=== PATIENT | female | born 1975 | race Caucasian/White ===

== ENCOUNTER → 2022-12-15 10:03 | Outpatient (BNVA) | payer MEDICAID, SELFPAY | PROVIDERS: Visit Provider Internal Medicine Rheumatology | DX: Z79.899 Other long term (current) drug therapy (principal); Z11.59 Encounter for screening for other viral diseases; Z11.1 Encounter for screening for respiratory tuberculosis; M06.041 Rheumatoid arthritis without rheumatoid factor, right hand; M06.042 Rheumatoid arthritis without rheumatoid factor, left hand; M79.7 Fibromyalgia; Z71.85 Encounter for immunization safety counseling | CPT/HCPCS: 36415; 80076; 82306; 82565; 83520; 84439; 84443; 85025; 86200; 86431; 86480; 86704; 86803; 87340; 99204 ==

== ENCOUNTER → 2023-03-16 12:42 | Outpatient (BNVA) | payer BC, SELFPAY | PROVIDERS: PCP Nurse Practitioner; Visit Provider Internal Medicine Rheumatology | DX: Z79.899 Other long term (current) drug therapy (principal); M06.041 Rheumatoid arthritis without rheumatoid factor, right hand; M06.042 Rheumatoid arthritis without rheumatoid factor, left hand; M79.7 Fibromyalgia; Z71.85 Encounter for immunization safety counseling | CPT/HCPCS: 36415; 80076; 82565; 85025; 86140 ==

== ENCOUNTER 2023-03-17 09:02 | Day surgery (SDC) | payer BC, SELFPAY ==
[2023-03-17 09:14] VITALS: BP 134/76; PULSE 79; RESP 18; TEMP 36.4; O2SAT 97; BMI 31.3
--- NOTE | 2023-03-17 09:24 | W.PM.OPSFHP ---
Same Day Surgery H&P Indication for Procedure/HPI DATE OF PROCEDURE: March 17, 2023 CHIEF COMPLAINT/INDICATIONFOR SURGICAL PROCEDURE: GERD and need for screening colonoscopy PREOP DIAGNOSIS: need for screening colonoscopy PLANNED PROCEDURE: Operation Date: 03/17/23 09:55 Proposed Procedures p [id number] egd [id number] colon G0121 screen oclon A risk K21.9 ,Z12.11 ,(Not Applicable) - Steven Resendiz MD s Colonoscopy(Not Applicable) - Steven Resendiz MD Medications/Allergies* Home Medications Medication Instructions Recorded Confirmed Type esomeprazole magnesium 20 mg 20 mg PO DAILY 12/15/22 03/17/23 History capsule,delayed release (Nexium) fluticasone propionate [Flovent inhalation BID 12/15/22 03/16/23 History HFA] multivitamin 1 tab PO DAILY 01/10/23 03/17/23 History Allergies/Adverse Reactions Allergy/AdvReac Type Severity Reaction Status Date / Time Latex, Natural Rubber Allergy rash Verified 03/16/23 11:45 Pertinent History/Comorbid Conditions* Medical History (Updated 01/31/23 @ 08:53 by Steven Resendiz MD) Immunization counseling Fibromyalgia High risk medication use Seronegative rheumatoid arthritis of both hands Rheumatoid arthritis GERD (gastroesophageal reflux disease) Asthma IBS (irritable bowel syndrome) Major depressive disorder Abdominal hernia Deviated nasal septum Surgical History (Updated 12/15/22 @ 11:09 by Ehsan Holly MD) History of appendectomy Family History (Updated 01/10/23 @ 08:36 by Floresita Lebron LPN) Rheumatoid arthritis Diabetes Mother pre diabetes Grandmother Cancer Mother skin Grandmother breast Stroke Grandfather paternal Denies family history of Lupus CAD (coronary artery disease) Chronic kidney disease (CKD) Family history of premature coronary artery disease Lung disease Hypertension Thyroid disease Social History Smoking and tobacco/nicotine status: never used tobacco/nicotine Alcohol intake: never Pertinent Exam Findings alert, oriented x 3, clear to auscultation bilaterally and regular rate & rhythm Recommendations Surgery/Procedure today Coding Level of Care Code Acute Code for Chg Fwd
[2023-03-17] MEDS: sodium chloride 0.9% 1,000 ML 30 ML IV (09:25)
--- NOTE | 2023-03-17 09:46 | ANES.PREANE2 ---
Pre-Anesthetic Assessment Height/Weight: Height 1.7 m Weight 90.718 kg Temp Pulse Resp BP Pulse Ox O2 Del Method 97.5 F L 79 18 134/76 97 Room Air 03/17/23 09:14 03/17/23 09:14 03/17/23 09:14 03/17/23 09:14 03/17/23 09:14 03/17/23 09:14 Preop Diagnosis: need for screening colonoscopy Operation Date: 03/17/23 09:55 Proposed Procedures p [id number] egd [id number] colon G0121 screen oclon A risk K21.9 ,Z12.11 ,(Not Applicable) - Steven Resendiz MD s Colonoscopy(Not Applicable) - Steven Resendiz MD Familial anesthetic complications: PONV Was Beta Janene taken within 24 hours: N/A Was Clonidine taken within 24 hours: N/A Last intake: Intake Last Liquid Date 03/16/23 Last Liquid Time 23:00 Last Solid Date 03/15/23 Last Solid Time 22:00 Social No alcohol and No tobacco Exam alert, oriented x 3, clear to auscultation bilaterally and regular rate & rhythm Airway Mallampati: Class II Dentition: full Pulmonary Asthma GI Gastroesophageal Reflux Disease [facility] [place] Fibromyalgia and Rheumatoid Arthritis Anesthetic Plan ASA status: 2 Anesthesia: MAC Risk of > 500 ml blood loss (7ml/kg in children): No Medications/Allergies Home Medications Medication Instructions Recorded Confirmed Last Taken Type esomeprazole magnesium 20 mg 20 mg PO DAILY 12/15/22 03/17/23 03/15/23 History capsule,delayed release (Nexium) fluticasone propionate [Flovent inhalation BID 12/15/22 03/16/23 03/16/23 History HFA] prednisone 10 mg tablet See Rx Instructions PO .COMPLEX 12/15/22 03/17/23 3 Months Ago Rx PRN joint pain #30 tabs ~12/16/22 citalopram 40 mg tablet (Celexa) 40 mg PO DAILY #90 tabs 01/10/23 03/17/23 03/16/23 Rx montelukast 10 mg tablet 10 mg PO DAILY #90 tabs 01/10/23 03/17/23 03/16/23 Rx (Singulair) multivitamin 1 tab PO DAILY 01/10/23 03/17/23 03/14/23 History folic acid 1 mg tablet 1 mg PO DAILY #90 tabs 03/16/23 03/17/23 03/08/23 Rx methotrexate sodium 2.5 mg tablet See Rx Instructions PO .week 03/16/23 03/17/23 03/12/23 Rx Rheumatoid Arthritis #50 tabs Allergies Allergy/AdvReac Type Severity Reaction Status Date / Time Latex, Natural Rubber Allergy rash Verified 03/16/23 11:45 Current Medications Generic Name Dose Route Start Last Admin Trade Name Ladan PRN Reason Stop Dose Admin Sodium Chloride 1,000 mls @ 30 mls/hr 03/17/23 09:15 03/17/23 09:25 Sodium Chloride 0.9% IV 30 mls/hr .Q24H GILMA Administration PFSH Anesthesia Medical History Immunization counseling Fibromyalgia High risk medication use Seronegative rheumatoid arthritis of both hands Rheumatoid arthritis GERD (gastroesophageal reflux disease) Asthma IBS (irritable bowel syndrome) Major depressive disorder Abdominal hernia Deviated nasal septum Surgical History History of appendectomy Family History Mother Cancer skin Diabetes pre diabetes Grandmother Cancer breast Diabetes Grandfather Stroke paternal Other Rheumatoid arthritis Denies family history of Lupus CAD (coronary artery disease) Chronic kidney disease (CKD) Family history of premature coronary artery disease Lung disease Hypertension Thyroid disease Social History Smoking and tobacco/nicotine status: never used tobacco/nicotine Alcohol intake: never Female Reproductive History Date of last menstrual period: 03/06/23 Para: 3 Spontaneous abortions: No Data Anesthesia Cardiac Studies: No Data to Display
[2023-03-17 09:49] LABS: OR HCG Qualitative Urine Negative (Negative)
[2023-03-17 10:40] VITALS: BP 116/71; PULSE 100; RESP 16; TEMP 36.1; O2SAT 97
[2023-03-17 11:07] VITALS: BP 119/73; PULSE 80; RESP 16; O2SAT 99
--- NOTE | 2023-03-17 14:47 | ANE.PACU2 ---
Inpatient post-anesthesia follow up: Airway intact: Yes Vital signs: Temperature 97.0 F Pulse Rate 80 Respiratory Rate 16 Blood Pressure 119/73 Pulse Oximetry 99 Oxygen Delivery Me thod Room Air Oxygen Flow Rate Fraction of Inspir ed Oxygen Hydration adequate: Yes Nausea and vomiting: No Pain level: 1 Mental status: Baseline
== END 2023-03-17 12:18 | disposition home or self-care (01) ==
PROVIDERS: PCP Nurse Practitioner; Visit Provider Surgery
PROC: 0DJ08ZZ Inspection of Upper Intestinal Tract, Via Natural or Artificial Opening Endoscopic (ICD-10-PCS; CPT 43235; principal; 2023-03-17 09:55)
PROC: 0DJD8ZZ Inspection of Lower Intestinal Tract, Via Natural or Artificial Opening Endoscopic (ICD-10-PCS; CPT 45378; 2023-03-17 09:55)
DX: Z12.11 Encounter for screening for malignant neoplasm of colon (principal); K21.9 Gastro-esophageal reflux disease without esophagitis; M79.7 Fibromyalgia; K44.9 Diaphragmatic hernia without obstruction or gangrene; K29.70 Gastritis, unspecified, without bleeding; M06.9 Rheumatoid arthritis, unspecified
CPT/HCPCS: 43239; 45378; 76937; 81025; 84703; 88305; J2704; J3490; J7030

== ENCOUNTER → 2023-04-10 12:05 | Outpatient (BNVA) | payer BC, SELFPAY | PROVIDERS: PCP Nurse Practitioner; Visit Provider Nurse Practitioner Family | DX: N39.0 Urinary tract infection, site not specified (principal) | CPT/HCPCS: 81000; 87077; 87086; 87184 ==

== ENCOUNTER → 2023-06-20 11:44 | Outpatient (BNVA) | payer BC, SELFPAY | PROVIDERS: PCP Nurse Practitioner; Visit Provider Nurse Practitioner | DX: F32.A Depression, unspecified (principal); M06.041 Rheumatoid arthritis without rheumatoid factor, right hand; M06.042 Rheumatoid arthritis without rheumatoid factor, left hand; Z79.899 Other long term (current) drug therapy | CPT/HCPCS: 80076; 82565; 85025; 86140 ==

== ENCOUNTER 2024-01-03 14:48 | Outpatient (CLI) | payer MEDICAID, SELFPAY ==
--- NOTE | 2024-01-03 14:58 | XR_ITS ---
WS: [id number] Exam: XR knee LT 3V* [id number] Date/Time of Exam: 01/03/2024 3:04 PM Reason For Exam: M06.041 - Rheumatoid arthritis without rheumatoid factor,... No fracture or dislocation. The joint compartments are preserved. Normal soft tissues. No joint effus ion. XR/XR knee LT 3V* [id number] IMPRESSION: 1. Normal LEFT knee.
--- NOTE | 2024-01-03 14:58 | XR_ITS ---
WS: [id number] Exam: XR hip LT 2-3V wo/w pel* [id number] Date/Time of Exam: 01/03/2024 3:04 PM Reason For Exam: M06.041 - Rheumatoid arthritis without rheumatoid factor,... No acute fracture or dislocation. Slight narrowing of the joint compartment. Normal soft tissues. XR/XR hip LT 2-3V wo/w pel* [id number] IMPRESSION: 1. Minimal DJD.
[2024-01-03 15:27] LABS: Basophils # 0.1 10^3/uL (0.0-0.1); Basophils % 0.5 %; Eosinophils # 0.2 10^3/uL (0.0-0.8); Eosinophils % 1.5 %; Lymphocytes # 2.8 10^3/uL (0.8-4.8); Lymphocytes % 26.2 %; Mean Corpuscular HGB Conc 31.3 g/dL (30-55); Mean Corpuscular Volume 79.8 fl (85-98); Mean Platelet Volume 9.8 fL (7.4-10.4); Monocytes # 0.7 10^3/uL (0.2-0.9); Monocytes % 6.5 %; Neutrophils # 6.83 10^3/uL (1.8-7.7); Neutrophils % 64.9 %; Nucleated Red Blood Cells % 0 %; Platelet Count 380 10^3/cmm (157-399); Red Blood Count 4.76 10^6/uL (3.85-5.65); Red Cell Distribution Width 15.6 % (12.1-15.1); White Blood Count 10.51 10^3/uL (3.29-11.43)
[2024-01-03 15:32] LABS: Erythrocyte Sedimentation Rate 25 mm/hr (0-15)
[2024-01-03 15:44] LABS: Alanine Aminotransferase 203 U/L (0-33); Albumin Level 4.1 g/dL (3.5-5.2); Alkaline Phosphatase 139 U/L (35-105); Aspartate Amino Transferase 174 U/L (0-32); C Reactive Protein 16.7 mg/L (0.0-4.9); Globulin 3.2 g/dL (1.3-4.6); Glomerular Filtration Rate 107.2 mL/min (90-130); Total Bilirubin 0.3 mg/dL (0.15-1.2); Total Protein 7.3 g/dL (6.6-8.7)
== END 2024-01-03 14:49 | disposition home or self-care (01) ==
LOC: RAD 14:50
PROVIDERS: PCP Nurse Practitioner; Visit Provider Internal Medicine Rheumatology
DX: M06.041 Rheumatoid arthritis without rheumatoid factor, right hand (principal); M06.042 Rheumatoid arthritis without rheumatoid factor, left hand; Z79.899 Other long term (current) drug therapy
CPT/HCPCS: 36415; 73502; 73562; 80076; 82565; 85025; 85651; 86140

== ENCOUNTER 2024-01-11 13:59 | Outpatient (CLI) | payer BC, MEDICAID, SELFPAY ==
[2024-01-11 15:01] LABS: Alanine Aminotransferase 176 U/L (0-33); Albumin Level 4.4 g/dL (3.5-5.2); Alkaline Phosphatase 156 U/L (35-105); Aspartate Amino Transferase 155 U/L (0-32); Globulin 3.6 g/dL (1.3-4.6); Total Bilirubin 0.3 mg/dL (0.15-1.2)
== END 2024-01-11 14:00 | disposition home or self-care (01) ==
LOC: LAB 14:00
PROVIDERS: PCP Nurse Practitioner; Visit Provider Internal Medicine Rheumatology
DX: Z79.899 Other long term (current) drug therapy (principal); M06.041 Rheumatoid arthritis without rheumatoid factor, right hand; M06.042 Rheumatoid arthritis without rheumatoid factor, left hand; M79.7 Fibromyalgia
CPT/HCPCS: 36415; 80076

== ENCOUNTER 2024-01-24 13:48 | Outpatient (CLI) | payer BC, MEDICAID, SELFPAY ==
[2024-01-24 15:26] LABS: Hepatitis A Antibody IgM Non-Reactive (Nonreactive); Hepatitis B Core AB, Total Non-Reactive (Nonreactive); Hepatitis B Surface AB < 3.5 (11.5-1000); Hepatitis B Surface Antigen Non-Reactive (Nonreactive); Hepatitis C Virus Antibody Non-Reactive (Nonreactive)
== END 2024-01-24 13:49 | disposition home or self-care (01) ==
LOC: LAB 13:49
PROVIDERS: PCP Nurse Practitioner; Visit Provider Internal Medicine Rheumatology
DX: R79.89 Other specified abnormal findings of blood chemistry (principal); Z79.899 Other long term (current) drug therapy; M06.041 Rheumatoid arthritis without rheumatoid factor, right hand; M06.042 Rheumatoid arthritis without rheumatoid factor, left hand
CPT/HCPCS: 36415; 86705; 86706; 86709; 86803; 87340

== ENCOUNTER → 2024-02-12 11:19 | Outpatient (BNVA) | payer BC, MEDICAID, SELFPAY | PROVIDERS: PCP Nurse Practitioner; Visit Provider Nurse Practitioner | DX: R79.89 Other specified abnormal findings of blood chemistry (principal) | CPT/HCPCS: 80076 ==

== ENCOUNTER 2024-02-16 09:30 | Outpatient (CLI) | payer BC, MEDICAID, SELFPAY ==
--- NOTE | 2024-02-16 09:30 | US_ITS ---
WS: [id number] RIGHT UPPER QUADRANT ULTRASOUND HISTORY: R79.89 - Other specified abnormal findings of blood chemi... COMPARISON: None available. Liver: 17.3 cm in length. Mildly enlarged liver with diffuse heterogeneity and attenuation from hepat ic steatosis. The entire liver cannot be imaged due to its increased attenuation. No bile duct dilat ation. Portal Vein: Normal hepatopetal flow with monophasic waveform. Gallbladder: Normally distended gallbladder with no stones or wall thickening. CBD: 0.7 cm, not well visualized. Pancreas: Not visualized. Right kidney: 11.3 cm in length. Normal size and echogenicity. No hydronephrosis or mass. Aorta and IVC: Unremarkable abdominal aorta and IVC. No ascites. US/US liver [id number] IMPRESSION: 1. Difficult and technically limited RIGHT upper quadrant ultrasound. 2. The liver is slightly enlarged with marked hepatic steatosis. 3. Negative gallbladder. 4. Common bile duct is top normal size. Poorly visualized and identified due t o body habitus.
== END 2024-02-16 09:40 | disposition home or self-care (01) ==
PROVIDERS: PCP Nurse Practitioner; Visit Provider Internal Medicine Rheumatology
DX: R16.0 Hepatomegaly, not elsewhere classified (principal); K76.0 Fatty (change of) liver, not elsewhere classified; R79.89 Other specified abnormal findings of blood chemistry; Z79.899 Other long term (current) drug therapy; M06.041 Rheumatoid arthritis without rheumatoid factor, right hand; M06.042 Rheumatoid arthritis without rheumatoid factor, left hand
CPT/HCPCS: 76705